=== PATIENT | male | born 1990 | race Hispanic/Latino ===

== ENCOUNTER 2021-09-18 01:46 | Emergency (ER) | payer OTHER ==
[~2021-09-18] VITALS: Ht 175.3 cm; Wt 97.5 kg
[2021-09-18 02:06] VITALS: BP 149/92
[2021-09-18] MEDS: IBUPROFEN 600 MG TABLET PO ONE ×2 (03:30→03:45)
[2021-09-18] MEDS ORDERED: SOLU-MEDROL 125MG VIAL IM ONE (03:30)
[2021-09-18] MEDS ORDERED: AMOX/CLAV 875/125MG TAB PO ONE (03:30)
[2021-09-18] MEDS ORDERED: PRED50TA2 PO (03:31)
[2021-09-18] MEDS ORDERED: IBUP-2070 PO (03:31)
[2021-09-18] MEDS ORDERED: BENZ1LOZ81 MM (03:31)
[2021-09-18] MEDS ORDERED: AMOX1TAB16 PO (03:31)
== END 2021-09-18 04:17 | disposition home or self-care (01) ==
LOC: EDH 01:46
DX: G51.0 Bell's palsy (principal); H66.92 Otitis media, unspecified, left ear
CPT/HCPCS: 96372; 99283; J2930